=== PATIENT | male | born 1955 | race Caucasian/White ===

== ENCOUNTER → 2023-05-20 13:18 | Outpatient (REF) | payer MEDICARE, OTHER, SELFPAY | LOC: HWRAD 13:18 | PROVIDERS: ATTENDING PHYSICIAN Nurse Practitioner Family | DX: S79.912A Unspecified injury of left hip, initial encounter (principal) | CPT/HCPCS: 72110; 73502 ==

== ENCOUNTER 2023-05-22 10:27 | Emergency (ER) | payer MEDICARE, OTHER, SELFPAY ==
[2023-05-22 10:42] VITALS: BP 152/93
--- NOTE | 2023-05-22 11:42 | ED.GENMED ---
History of Present Illness
General
Chief Complaint: Musculo-Skeletal Complaint
Source: patient and spouse
Exam Limitations: none
Time Seen by Provider: 05/22/23 11:18
Nursing documentation reviewed up to this point in time: agreed with
Travel History
Have you had any contact with someone who has COVID-19?: No
Do you have any symptoms of coronavirus? Fever > 100 degrees, chills, cough, shortness of breath, sore throat, loss of taste or smell, muscle aches, or headache?: No
History of Present Illness
History of Present Illness:
This morning patient is a 67-year-old male with past medical history of sciatica who presents to the ER for evaluation of pain to his left groin/left buttocks and left thigh. pt reports he did have a fall one month ago. He does report however that
he had a 14-hour drive to [place] 10 days ago and recently drove back from [place] on Friday, 4 days ago. Starting Friday night he had increased pain that is now going down his anterior left thigh. He denies any swelling redness fever chills.
He has pain with standing/weight bearing.
Pt has seen his PCP had a negative xray and has been taking Ibuprofen without relief.
Pt denies shortness of breath.
Review of Systems
Review of Systems
Allergies reviewed?: Yes
All Other Systems: ROS reviewed and negative except as documented in HPI and ROS
Constitutional: Reports no symptoms; Denies fever, fatigue or chills
EENT: Reports no symptoms
Respiratory: Reports no symptoms
Cardiac: Reports no symptoms
Musculoskeletal: Reports other (pt to left leg thigh )
Skin: Reports no symptoms
Neurological: Denies dizzy or numbness
Hematologic/Lymphatic: Reports no symptoms
Psychiatric: Reports no symptoms
Phy Exam
General Physical Exam
General Presentation: no apparent distress
General Skin: warm and dry
General Habitus: normal
General Mental: alert
General Hydration: appears well hydrated
Neurological Exam
Neurological Exam: alert, oriented x3, no motor deficits, no sensory deficits and other (nml sensation to left lower extremity normal dorsiflexion plantarflexion)
Musculoskeletal Exam
Musculoskeletal Exam: other (Left lower extremity with normal inspection strong pulses no swelling or redness slight discomfort with lifting leg off stretcher)
Skin Exam
Skin Exam: normal color and warm/dry
Psychiatric Exam
Psychiatric Exam: normal mood/affect
Course
Orders/Labs/Results
Orders:
Orders
05/22/23 11:39
Dexamethasone Sod Phosphate [Decadron] 10 mg IM NOW STA
Venous Doppler Lwr Ext Left [US Periph Venous LOWER Ext LT] Urgent
Comment:
Reason For Exam: pain s/p drive
05/22/23 11:42
HYDROmorphone [Dilaudid] 1 mg IM NOW STA
Vital Signs
Initial and Last Documented VS:
Initial Vital Signs
Temp Pulse Resp BP Pulse Ox
97.8 F 78 18 152/93 95
05/22/23 10:42 05/22/23 10:42 05/22/23 10:42 05/22/23 10:42 05/22/23 10:42
Last Documented Vital Signs
Temp Pulse Resp BP Pulse Ox
97.8 F 78 18 152/93 95
05/22/23 10:42 05/22/23 10:42 05/22/23 10:42 05/22/23 10:42 05/22/23 10:42
MDM/Problems Addressed
Differential Diagnosis Includes:
Not limited to sciatica less likely DVT
MDM/Problems Addressed:
Symptoms are consistent with sciatica. Patient does have a history of sciatica and had recent pain to the left groin buttock area rating down the left leg now most of the pain is anterior thigh. He did have a long drive recently however there is
no obvious swelling on exam and ultrasound was negative. There is no evidence infection he denies any redness there is no redness on exam he denies any fever chills he is afebrile here there is no obvious swelling. Patient was given steroids and
pain medication here in the ER symptoms have improved. Will DC with steroids. Did review with patient that steroids will increase his blood sugar he will closely follow with his family doctor, and ortho.
*Radiology
Radiology exam reviewed: radiology read reviewed
*Pulse Oximetry
Patient hypoxic: no
*Critical Care Note
Total Time (30-74mins, 75-104mins- exclusive of procedures): Not Applicable
ED Attending Note
-
Portions of this chart may have been created with voice recognition software.� Occasional wrong word or��sound alike� substitutions may have occurred due to the inherent limitations of voice recognition software.
Discharge Plan
Departure
Patient Disposition: Home (Routine Discharge)
Date of Disposition: 05/22/23
Time of Disposition: 13:41
Patient with high blood pressure during this ER visit?: Yes
Covid-19: Not Applicable
Discharge Problem:
Sciatica
Instructions: Sciatica (DC), BLOOD PRESSURE
Prescriptions:
New
prednisone 10 mg Tablet
See Rx Instructions .ROUTE .COMPLEX Qty: 30 0RF
Rx Instructions:
Take By Mouth:
40 mg daily x3 days, 30 mg daily x3 days,
20 mg daily x3 days, 10 mg daily x3 days.
Referrals:
Gerald Patterson MD [Active] -
Kana Pedro DO [Family Provider] -
Activity Restrictions/Additional Instructions:
As discussed you may take Tylenol for discomfort in addition to steroids. The prescription for steroids was sent to your family doctor start tomorrow take as directed. Follow-up with doctor/orthopedics in the next several days please call today to
schedule an appointment as soon as possible. Return however to the ER if any worsening of symptoms including worsening pain.
As discussed steroids may increase your blood sugar
Interventions
Interventions:
*Risk Screen - Suicide Last Done: 05/22/23 10:44
*General Assessment Last Done: 05/22/23 10:44
*Neglect/Abuse Screening Last Done: 05/22/23 10:44
Discharge Date and Time
Print Language: BHUTANESE
[2023-05-22] MEDS: DILAUDID 1 MG IM (11:52)
[2023-05-22] MEDS: DECADRON 10 MG IM (11:52)
== END 2023-05-22 13:49 | disposition home or self-care (01) ==
LOC: EMR 10:27
PROVIDERS: EMERGENCY PHYSICIAN Student in an Organized Health Care Education/Training Program; FAMILY PHYSICIAN Family Medicine
DX: M54.32 Sciatica, left side (principal); R03.0 Elevated blood-pressure reading, without diagnosis of hypertension
CPT/HCPCS: 99284; 96372 ×2; 93971

== ENCOUNTER → 2023-05-27 14:14 | Outpatient (REF) | payer MEDICARE, OTHER, SELFPAY | LOC: HWRAD 14:14 | PROVIDERS: ATTENDING PHYSICIAN Radiology Diagnostic Radiology; FAMILY PHYSICIAN Family Medicine | DX: Z13.89 Encounter for screening for other disorder (principal) | CPT/HCPCS: 70030 ==

== ENCOUNTER → 2023-06-12 11:53 | Outpatient (REF) | payer MEDICARE, OTHER, SELFPAY ==
[2023-06-12 17:23] LABS: Blood Urea Nitrogen 22 mg/dl (9-20); Carbon Dioxide 26 mmol/L (22-30); Chloride 100 mmol/L (98-107); Glucose 201 mg/dl (70-99); Potassium 3.6 mmol/L (3.5-5.1); Sodium 136 mmol/L (135-145); eGFR > 60.00
== END ==
LOC: HWLAB 11:53
PROVIDERS: ATTENDING PHYSICIAN Orthopaedic Surgery; FAMILY PHYSICIAN Family Medicine
DX: M54.50 Low back pain, unspecified (principal); M54.9 Dorsalgia, unspecified
CPT/HCPCS: 36415; 80048

== ENCOUNTER → 2023-06-18 13:27 | Outpatient (REF) | payer MEDICARE, OTHER, SELFPAY | LOC: HWRAD 13:27 | PROVIDERS: ATTENDING PHYSICIAN Physical Medicine & Rehabilitation Pain Medicine; FAMILY PHYSICIAN Family Medicine | DX: M54.16 Radiculopathy, lumbar region (principal); M54.50 Low back pain, unspecified | CPT/HCPCS: 72131 ==

== ENCOUNTER → 2023-06-26 11:33 | Outpatient (REF) | payer MEDICARE, OTHER, SELFPAY | LOC: MRI 11:33 | PROVIDERS: ATTENDING PHYSICIAN Family Medicine | DX: M54.16 Radiculopathy, lumbar region (principal) | CPT/HCPCS: 72148 ==